=== PATIENT | female | born 1970 | race Caucasian/White ===

== ENCOUNTER 2016-10-24 23:07 | Emergency (ER) | payer OTHER, MEDICAID ==
[~2016-10-24] VITALS: Ht 157.5 cm; Wt 68.2 kg
[~2016-10-24 23:07] MED LIST: AMPH15TA PO; DOCU250C7 PO; FLUT250D IH; IPRA3AMP HHN; POTA20TA35 PO; PRE10 PO; PRE20 PO; PROT40T PO; ProAirHFA INH; QUET400T PO; TPR100T PO; ZOL50 PO; [UNRECOGNIZED DRUG - CODE] PO
[2016-10-24 23:09] VITALS: BP 133/89; PULSE 101; RESP 18; O2SAT 94
--- NOTE | 2016-10-24 23:10 | ED.REPORT ---
HPI- Male Date of Service Oct 24, 2016 ED Provider: Dr. Lorenzo Luis MD A 46 year old female presents [facility] the ED [facility] complaining of heavy chest pain that began yesterday. The pain is exacerbated by deep breath. Associated symptoms include subjective fever, nausea, diaphoresis, a productive cough and edema in the lower extremities. She denies any diarrhea or vomiting. Nursing Notes Stated Complaint: CHEST PAIN Chief Complaint: Chest Pain Nursing Notes Reviewed: Yes Allergies: Coded Allergies: No Known Allergies (Unverified Allergy, 01/24/12) Scheduled Albuterol Sulfate/Ipratropium (Duoneb 2.5-0.5MG/3ML Soln) 3 Ml Nebu 3 ML HHN Q6 Albuterol-Expunged Drug, Do Not Renew! (ProAir HFA-Expunged Drug, Do Not Renew! ) 200 Puff/8.5 Gm Hfa.aer.ad 8.5 GM INH Q6 Cefuroxime Axetil (Ceftin 25 mg/mL) 100 Ml Bottle 500 MG PO BID Docusate Sod-Expunged Drug, Do Not Renew! (Docusate Sod-Expunged Drug, Do Not Renew!) 250 Mg Cap 250 MG PO BID Fluticasone-Expunged Drug, Do Not Renew! (Flovent Diskus-Expunged Drug, Do Not Renew!) 250 Mcg Disk.w.dev 250 MCG IH BID Mixed Amphet-Expunged Drug, Do Not Renew! (Mixed Amphet-Expunged Drug, Do Not Renew!) 15 Mg Tablet 30 MG PO DAILY POTASSIUM CHL-Expunged Drug, Do Not Renew! (G-XFI-Lrqledqe Drug, Do Not Renew!) 20 Meq Tab.er.prt 20 MEQ PO DAILY Pantoprazole-Expunged Drug, Do Not Renew! (Protonix-Expunged Drug, Do Not Renew! ) 40 Mg Tablet.dr 40 MG PO BID 40 MG PredniSONE-Expunged Drug, Do Not Renew! (PredniSONE-Expunged Drug, Do Not Renew! ) 20 Mg Tab 40 MG PO DAILY TAKE WITH FOOD PredniSONE-Expunged Drug, Do Not Renew! (PredniSONE-Expunged Drug, Do Not Renew! ) 20 Mg Tab 20 MG PO DAILY TAKE WITH FOOD PredniSONE-Expunged Drug, Do Not Renew! (PredniSONE-Expunged Drug, Do Not Renew! ) 10 Mg Tab 10 MG PO DAILY TAKE WITH FOOD Quetiapine-Expunged Drug, Do Not Renew! (Seroquel-Expunged Drug, Do Not Renew!) 400 Mg Tablet 400 MG PO HS Sertraline-Expunged Drug, Choose New Med! (Sertraline-Expunged Drug, Choose New Med!) 50 Mg Tab 150 MG PO HS Topiramate-Expunged Drug, Do Not Renew! (Topiramate-Expunged Drug, Do Not Renew! ) 100 Mg Tab 150 MG PO HS General Time Seen by MD: 23:10 Chief Complaint Other Discharge & Departure Referrals: Henrietta Bateman MD (PCP) Lorenzo Luis MD Oct 24, 2016 23:10 ANNEL RILEY Oct 24, 2016 23:13
--- NOTE | 2016-10-24 23:15 | ED.REPORT ---
HPI-General Illness Date of Service Oct 24, 2016 ED Provider: Lorenzo Luis MD A 46 year old female presents to the ED via EMS from the [facility] complaining of pleuritic chest pain that began yesterday. The episodes of pain have been occurring intermittently for the past 24 hours and are exacerbated by deep breath. Recent associated symptoms include subjective fever, nausea, diaphoresis, a productive cough and edema in the lower extremities. She denies any diarrhea or vomiting. Nursing Notes Stated Complaint: CHEST PAIN Chief Complaint: Chest Pain Nursing Notes Reviewed: Yes Allergies: Coded Allergies: No Known Allergies (Unverified Allergy, 01/24/12) Scheduled Albuterol Sulfate/Ipratropium (Duoneb 2.5-0.5MG/3ML Soln) 3 Ml Nebu 3 ML HHN Q6 Albuterol-Expunged Drug, Do Not Renew! (ProAir HFA-Expunged Drug, Do Not Renew! ) 200 Puff/8.5 Gm Hfa.aer.ad 8.5 GM INH Q6 Azithromycin (Zithromax) 250 Mg Tablet 250 MG PO DAILY Cefuroxime Axetil (Ceftin 25 mg/mL) 100 Ml Bottle 500 MG PO BID Docusate Sod-Expunged Drug, Do Not Renew! (Docusate Sod-Expunged Drug, Do Not Renew!) 250 Mg Cap 250 MG PO BID Fluticasone-Expunged Drug, Do Not Renew! (Flovent Diskus-Expunged Drug, Do Not Renew!) 250 Mcg Disk.w.dev 250 MCG IH BID Mixed Amphet-Expunged Drug, Do Not Renew! (Mixed Amphet-Expunged Drug, Do Not Renew!) 15 Mg Tablet 30 MG PO DAILY POTASSIUM CHL-Expunged Drug, Do Not Renew! (G-YPH-Vxhueysp Drug, Do Not Renew!) 20 Meq Tab.er.prt 20 MEQ PO DAILY Pantoprazole-Expunged Drug, Do Not Renew! (Protonix-Expunged Drug, Do Not Renew! ) 40 Mg Tablet.dr 40 MG PO BID 40 MG PredniSONE-Expunged Drug, Do Not Renew! (PredniSONE-Expunged Drug, Do Not Renew! ) 20 Mg Tab 40 MG PO DAILY TAKE WITH FOOD PredniSONE-Expunged Drug, Do Not Renew! (PredniSONE-Expunged Drug, Do Not Renew! ) 20 Mg Tab 20 MG PO DAILY TAKE WITH FOOD PredniSONE-Expunged Drug, Do Not Renew! (PredniSONE-Expunged Drug, Do Not Renew! ) 10 Mg Tab 10 MG PO DAILY TAKE WITH FOOD Quetiapine-Expunged Drug, Do Not Renew! (Seroquel-Expunged Drug, Do Not Renew!) 400 Mg Tablet 400 MG PO HS Sertraline-Expunged Drug, Choose New Med! (Sertraline-Expunged Drug, Choose New Med!) 50 Mg Tab 150 MG PO HS Topiramate-Expunged Drug, Do Not Renew! (Topiramate-Expunged Drug, Do Not Renew! ) 100 Mg Tab 150 MG PO HS Scheduled PRN Ibuprofen (Ibuprofen) 400 Mg Tablet 400 MG PO QID PRN PRN For Pain General Time Seen by MD: 23:10 Chief Complaint Chest pain Hx Obtained From: Patient Arrived By: Ambulance Sudden in Onset?: No Onset Occurred: Yesterday Symptom Duration: Intermittent Location: : Chest Quality: Pleuritic Radiation: : Does not radiate Severity: Current: No pain currently Severity: Maximum: Moderate Associated with: Reports: Chest pain, Cough, Diaphoresis, Fever, Nausea, Denies: Vomiting Pertinent Negative: Pt denies other symptoms Recent Healthcare: No recent doctor visit, No recent hospitalization Past Medical History Past Medical History Depression Previous suicide attempt Migraines Thyroid disease Past Surgical History None reported Social History Currently Incarcerated at [facility] Other Social History: Local resident Ambulatory Status Independent Review of Systems Full Review of Systems Constitutional: Reports: Fever Respiratory: Reports: Prod cough, white Cardiovascular: Reports: Chest pain GI: Reports: Nausea, Denies: Diarrhea, Vomiting Musculoskeletal: Reports: Extremity swelling Skin: Reports Diaphoresis Complete sys rev & neg: except as marked. Physical Exam Vital Signs Vital Signs Date Time Temp Pulse Resp B/P Pulse Ox O2 Delivery O2 Flow Rate FiO2 10/25/16 02:08 36.5 82 18 108/66 95 Room Air 10/24/16 23:34 90 18 95 Room Air 10/24/16 23:09 36.6 101 18 133/89 94 Room Air Initial VS: Reviewed Head / Eyes: Atraumatic, Normocephalic, PERRL Neck: Supple, Non-tender, Full range of motion Extremities: Vascular intact, Neuro intact, No swelling, No tenderness Skin: Warm, Dry, No cyanosis Neurologic: Alert, Oriented, Nonfocal General/Constitutional: Awake, Alert, No acute distress Head / Eyes: Atraumatic, Normocephalic, PERRL Respiratory / Chest: Atraumatic, Breath sounds NL, Breath sounds = bilat, No respiratory distress, No chest tenderness Cardiovascular: Heart rate NL, Regular rhythm, Heart sounds NL Abdomen: Atraumatic, Soft, Non-tender Interpretation & Diagnostics Lab Results Interpretation Result Diagram: 10/24/16 2330 10/24/16 2330 Test 10/24/16 23:30 White Blood Count 6.1th/mm3 (3.8-10.1) Red Blood Count 4.17mil/mm3 (3.90-5.20) Hemoglobin 12.7g/dL (12.0-15.6) Hematocrit 38.9% (35.0-46.0) Mean Corpuscular Volume 93.3fL (81-100) Mean Corpuscular Hemoglobin 30.5pg (27.0-35.0) Mean Corpuscular Hemoglobin Concent 32.6% (32.0-37.0) Red Cell Distribution Width 12.7% (12.3-15.4) Platelet Count 222bil/L (150-400) Neutrophils (%) (Auto) 51.7% (40-74) Lymphocytes (%) (Auto) 36.6% (14-46) Monocytes (%) (Auto) 9.9% (4-12) Eosinophils (%) (Auto) 1.3% (0-5) Basophils (%) (Auto) 0.3% (0-3) Prothrombin Time 9.9sec (8.1-12.5) Prothromb Time International Ratio 0.93ratio Activated Partial Thromboplast Time 26.9sec (22.8-33.0) D-Dimer < 0.50mg/L FEU (<0.50) Sodium Level 142mEq/L (134-144) Potassium Level 4.5mEq/L (3.5-5.2) Chloride Level 99mEq/L (97-108) Carbon Dioxide Level 26mmol/L (18-29) Blood Urea Nitrogen 36mg/dL (6-24) Creatinine 0.90mg/dL (0.57-1.00) Estimat Glomerular Filtration Rate 96mL/min (>59) Glucose Level 118mg/dL (60-99) Lactic Acid Level 1.4mmol/L (0.4-2.0) Calcium Level 9.4mg/dL (8.5-10.1) Magnesium Level 2.0mg/dL (1.6-2.6) Total Bilirubin 0.2mg/dL (0.0-1.2) Aspartate Amino Transf (AST/SGOT) 20U/L (0-50) Alanine Aminotransferase (ALT/SGPT) 29U/L (0-32) Alkaline Phosphatase 67U/L (25-150) Troponin T 0.010ug/L (0.0-0.011) Pro-B-Type Natriuretic Peptide 116pg/mL (0-249) Total Protein 7.4g/dL (6.4-8.4) Albumin 4.7g/dL (3.4-5.0) Procalcitonin 0.08ng/mL (0.00-0.08) ECG Interpretation ECG Interpretation: Sinus rhythm Rate 92 Time: 00:04 Interpreted by: ED physician X-Ray Chest Interpretation Chest Xray Interpretation: No acute abnormalities Old rib fracture Interpretation / Wet Read by: Wet read ED physician Re-Eval/Medical Decision Med Decision/Clinical Course 38-year-old with reported emphysema, presents with cough and low-grade fever and pleuritic chest pain. X-rays negative for infiltrate. D-dimer is negative. EKG is unremarkable. Begun with azithromycin with presumptive bronchitis. Discharged in stable condition at the senior living to [facility] Time of Eval: 01:27 Patient Status: Condition improved Re-Evaluation/Progress Note: Patient is re-evaluated. Her symptoms have improved upon recheck. She is informed of her results and diagnosis. The patient understands and agrees with the intended treatment plan. Counseled Regarding: Diagnosis, Lab results, Need for follow-up, When/why to return to ED Discharge & Departure Primary Impression: Pleuritic chest pain Additional Impression: Bronchitis Disposition: Home Discharge Condition All VS Reviewed: Yes Condition: Stable Patient Instructions: Acute Bronchitis (ED), Chest Pain (ED), Pleurisy (ED) Additional Instructions: Began as azithromycin one tablet daily for four days more. Ibuprofen four times daily if needed for pain. Follow-up with your doctor in the office Referrals: Henrietta Bateman MD (PCP) Scribe Attestation Portions of this note were transcribed by Annel Riley. I, Dr. Luis personally performed the history, physical exam and medical decision-making; I reviewed and confirmed the accuracy of the information in the transcribed note. copies to: Henrietta Bateman MD, Christopher W MD Oct 24, 2016 23:15 ANNEL RILEY Oct 24, 2016 23:23
[2016-10-24] MEDS ORDERED: 0.9% Sodium Chloride 1,000 ML IV ONE (23:16)
[2016-10-24] MEDS ORDERED: Albuterol-Ipratropium 3 mL Inhalation Solution NEB ONE (23:20)
[2016-10-24] MEDS ORDERED: Albuterol 2.5 mg/3 mL Inhalation Solution NEB ONE (23:20)
[2016-10-24 23:34] VITALS: PULSE 90; RESP 18; O2SAT 95
[2016-10-24 23:47] LABS: BASOPHILS % (AUTO) 0.3 % (0-3); EOSINOPHILS % (AUTO) 1.3 % (0-5); MONOCYTES % (AUTO) 9.9 % (4-12); Mean Corpuscular Hemoglobin 30.5 pg (27.0-35.0); Mean Corpuscular Volume 93.3 fL (81-100); NEUTROPHILS % (AUTO) 51.7 % (40-74); Platelet Count 222 bil/L (150-400)
[2016-10-25 00:07] LABS: INR 0.93 ratio
[2016-10-25 00:18] LABS: TROPONIN T 0.01 ug/L (0.0-0.011)
[2016-10-25] MEDS ORDERED: IBUP400T22 PO (01:26)
[2016-10-25] MEDS ORDERED: ZIT250 PO (01:26)
[2016-10-25] MEDS ORDERED: Ketorolac 15 mg/mL Inj IVPUSH ONE (01:30)
[2016-10-25 02:08] VITALS: BP 108/66; PULSE 82; RESP 18; O2SAT 95
--- NOTE | 2016-10-25 07:48 | DRSVH ---
PROCEDURE: X-RAY CHEST, TWO VIEWS ([id number]) INDICATIONS: 46 year-old female with pleuritic chest pain. TECHNIQUE: 2 views of the chest were acquired. COMPARISON: [facility], CR, CHEST 1VW (PORTABLE), 03/10/2011, 15:58. [facility], CR, CHEST 1VW (PORTABLE), 05/03/2009, 2:25. [facility], CR, CHEST 2VW, 11/11/2012, 2:01. [facility], CR, CHEST 1VW (PORTABLE), 01/25/2012, 6:35. [facility], C R, CHEST 1VW (PORTABLE), 01/24/2012, 4:13. FINDINGS: Surgical changes and devices: None. Lungs and pleura: No pleural effusions or pneumothorax. Lungs are clear. Mediastinum: Mediastinal contours are normal. Heart size is normal. Bones and chest wall: No suspicious bony abnormalities. Nonacute left sixth rib fracture appears ne w since 2012. Soft tissues appear unremarkable. IMPRESSION: 1. No acute cardiopulmonary disease. 2. Nonacute left sixth rib fracture appears new since 2012. Dictated by: Clement Britton M.D. on 10/25/2016 at 7:44 Approved by: Clement Britton M.D. on 10/25/2016 at 7:46
== END 2016-10-25 01:45 | disposition home or self-care (01) ==
LOC: SED 23:07
DX: R07.81 Pleurodynia (principal); J40 Bronchitis, not specified as acute or chronic; R50.9 Fever, unspecified; F32.9 Major depressive disorder, single episode, unspecified; G43.909 Migraine, unspecified, not intractable, without status migrainosus
CPT/HCPCS: 36415; 71020; 80053; 83605; 83735; 83880; 84145; 84484; 85025; 85378; 85610; 85730; 87040; 93005; 94640; 94664; 96361; 96374; 99285; J1885; J7030; J7613; J7620